=== PATIENT | male | born 1965 | race Caucasian/White ===

== ENCOUNTER 2018-08-12 08:04 | Day surgery (SDC) | payer OTHER ==
[~2018-08-12] VITALS: Ht 180.3 cm; Wt 102.1 kg
[~2018-08-12 08:04] MED LIST: ASPI81CH33 PO; D 101000 PO; FISH1000 PO; GALZ25CA PO; GINK1CAP PO; LEVO50TA5 PO; NO ITAB PO; NS 1,000 ML IV ONE; ROSU40TA3 PO; TUMERIC
[2018-08-12] MEDS ORDERED: LIDOCAINE 2% INJ 100 MG/5 ML SDV (FOR ANES.) As Ordered ONE (09:47)
[2018-08-12] MEDS ORDERED: PROPOFOL 200 MG/20 ML VIAL As Ordered ONE ×2 (09:47→09:53)
--- NOTE | 2018-08-12 09:59 | ROOR ---
Patient Name: Lloyd Pena Procedure Date: 08/12/2018 9:37 AM Date of : 1965 Age: 53 Room: [facility] Gender: Male Note Status: Finalized Procedure: Total Colonoscopy to Cecum Indications: Colon cancer screening in patient at increased risk: Colorectal cancer in father Providers: Gerry Mcdowell MD Referring MD: Simba Damon Md Requesting Provider: Medicines: Monitored Anesthesia Care Complications: No immediate complications. Procedure: Pre-Anesthesia Assessment: - The heart rate, respiratory rate, oxygen saturations, blood pressure, adequacy of pulmonary ventilation, and response to care were monitored throughout the procedure. The Colonoscope was introduced through the anus and advanced to the cecum, identified by appendiceal orifice and ileocecal valve. The colonoscopy was performed without difficulty. The patient tolerated the procedure well. The quality of the bowel preparation was excellent. Findings: The perianal and digital rectal examinations were normal. Non-bleeding internal hemorrhoids were found during retroflexion. The hemorrhoids were small and Grade I (internal hemorrhoids that do not prolapse). No other significant abnormalities were identified in a careful examination of the remainder of the colon. The exam was otherwise without abnormality on direct and retroflexion views. Impression: - Non-bleeding internal hemorrhoids. - The examination was otherwise normal on direct and retroflexion views. - No specimens collected. - The exam was otherwise normal to the cecum. Recommendation: - Patient has a contact number available for emergencies. The signs and symptoms of potential delayed complications were discussed with the patient. Return to normal activities tomorrow. Written discharge instructions were provided to the patient. - High fiber diet. - Discharge patient to home. - Continue present medications. - Repeat colonoscopy in 5 years for screening purposes. - Return to referring physician. - The findings and recommendations were discussed with the patient's family. Gerry Mcdowell MD Gerry Mcdowell MD 08/12/2018 9:59:20 AM Electronically signed by Gerry Mcdowell MD Number of Addenda: 0 Note Initiated On: 08/12/2018 9:37 AM Estimated Blood Loss: Estimated blood loss: none.
[2018-08-12 10:20] VITALS: BP 136/90
== END 2018-08-12 10:24 | disposition home or self-care (01) ==
LOC: M OPP 08:04
PROVIDERS: ATTEND Internal Medicine Gastroenterology
DX: K64.8 Other hemorrhoids (principal); Z12.11 Encounter for screening for malignant neoplasm of colon; Z80.0 Family history of malignant neoplasm of digestive organs

== ENCOUNTER → 2019-03-02 | Outpatient (CLI) | payer OTHER ==
[~2019-03-02] MED LIST changes: -NS 1,000 ML IV ONE; -ROSU40TA3 PO; +ROSU40TA4 PO
--- NOTE | 2019-03-04 07:45 | SLEEPCENT ---
DATE OF STUDY: 03/02/2019 ORDERED BY: Diamond Hoffman Nocturnal polysomnography was performed for evaluation of sleep physiology in this patient with history of excessive somnolence, snoring and nonrestorative sleep. 7 hours and 54 minutes of data were reviewed. There were 304 minutes of sleep identified. Sleep latency was prolonged at 92 minutes. REM latency was prolonged at 112 minute. Sleep architecture showed fragmentation and periods of wake. There were 2 REM cycles. Overall sleep efficiency was 65%. The patient's electrocardiogram showed a sinus rhythm with an average heart rate of 58 beats per minute. PVCs were appreciated. Electroencephalogram showed normal waveforms for awake and sleep stages. There were 279 respiratory events identified of 10 seconds in duration or greater for an apnea-hypopnea index of 55.1. The events were primarily obstructive, not exclusive to sleep stage nor body posture. Arousals from respiratory events occurred 14.2 times per hour and oxygen desaturations were seen in the 80s with minimal activity in the limb leads. Snoring was noted over the course of the study. IMPRESSION: Obstructive sleep apnea syndrome (G47.33). Apnea-hypopnea index 55.1. RECOMMENDATION: The patient should be encouraged to return to the sleep disorder center at his earliest convenience. In the interim, alcohol and sedative avoidance should be practiced and caution exercised during the operation of motor vehicles.
== END ==
LOC: M SLEEP 19:54
PROVIDERS: ATTEND Nurse Practitioner Adult Health
DX: G47.33 Obstructive sleep apnea (adult) (pediatric) (principal)

== ENCOUNTER → 2019-03-28 | Outpatient (CLI) | payer OTHER ==
--- NOTE | 2019-03-30 08:05 | SLEEPCENT ---
DATE OF PROCEDURE: 03/28/2019 ORDERED BY: Diamond Hoffman NP Nocturnal polysomnography was performed for the titration of pressure therapy in this patient with obstructive sleep apnea syndrome. Apnea-hypopnea index of 55.1. For testing a Katy Boucher nasal pillows device of medium-large size was used with a chin strap; 5 cm of water pressure were applied to the circuit and the lights were extinguished. 6 hours and 47 minutes of data were reviewed. There were 301 minutes of sleep identified. Sleep latency was prolonged at 34 minutes. Rapid eye movement (REM) latency was prolonged at 118 minutes. Sleep architecture did improve though some fragmentation persisted. Overall sleep efficiency was 75%. The patient's electrocardiogram showed a sinus rhythm with an average heart rate of 58 beats per minute. Electroencephalogram (EEG) showed reasonably normal waveforms for awake and sleep and some artifactual change. Respiratory events were best palliated with CPAP at a pressure of +8. Some limb activity was noted despite the use of pressure therapy. Limb movement arousal index was 9.4. IMPRESSION: Obstructive sleep apnea syndrome (G47.33). RECOMMENDATIONS: Nightly use of pressure therapy 8 cm of water.
== END ==
LOC: M SLEEP 20:00
PROVIDERS: ATTEND Nurse Practitioner Adult Health
DX: G47.33 Obstructive sleep apnea (adult) (pediatric) (principal)

== ENCOUNTER 2023-03-30 11:17 | Emergency (ER) | payer OTHER ==
[~2023-03-30] VITALS: Ht 182.9 cm; Wt 104.5 kg
[2023-03-30] MEDS ORDERED: METH4PACK PO (11:45)
[2023-03-30] MEDS ORDERED: GABAPENTIN 300 MG CAP PO ONE (12:45)
[2023-03-30] MEDS ORDERED: diazePAM 5MG TABLET PO ONE (12:45)
[2023-03-30] MEDS ORDERED: KETOROLAC 30 MG/ML 1ML VIAL IM ONE (13:05)
[2023-03-30] MEDS ORDERED: ONDANSETRON 4MG 2ML VIAL IV ONE (15:55)
[2023-03-30] MEDS ORDERED: MORPHINE 4 MG/ML 1ML VIAL IV ONE ×2 (15:55→22:15)
[2023-03-30] MEDS ORDERED: methocarbamoL 500 MG TAB PO ONE (18:25)
[2023-03-30 19:21] LABS: RSV AMPLIFICATION NEGATIVE (NEGATIVE)
[2023-03-31] MEDS ORDERED: MORPHINE 4 MG/ML 1ML VIAL IV ONE ×2 (03:30→06:50)
[2023-03-31 06:41] VITALS: BP 120/63; TEMP 97
[2023-03-31 07:00] VITALS: O2SAT 99
== END 2023-03-31 07:09 | disposition short-term general hospital (02) ==
LOC: M ED 11:17 → EDBD 11:17 → M ED 03-31 07:09
DX: M48.061 Spinal stenosis, lumbar region without neurogenic claudication (principal); M51.27 Other intervertebral disc displacement, lumbosacral region; M51.36 Other intervertebral disc degeneration, lumbar region; M25.78 Osteophyte, vertebrae; Z79.82 Long term (current) use of aspirin; Z79.899 Other long term (current) drug therapy
CPT/HCPCS: 72148; 87631; 96372; 96374; 96375; 96376; 99284; J1885; J2405

== ENCOUNTER → 2024-07-29 | Outpatient (CLI) | payer OTHER ==
[~2024-07-29] MED LIST changes: -GALZ25CA PO; +METH4PACK PO; -ROSU40TA4 PO; +ROSU40TA81 PO; +ZINC25CA2 PO
== END ==
LOC: M PLARAD 10:50
PROVIDERS: ATTEND Internal Medicine
DX: M51.16 Intervertebral disc disorders with radiculopathy, lumbar region (principal); M48.061 Spinal stenosis, lumbar region without neurogenic claudication; M51.17 Intervertebral disc disorders with radiculopathy, lumbosacral region

== ENCOUNTER 2024-10-29 09:45 | Emergency (ER) | payer OTHER ==
[~2024-10-29] VITALS: Ht 182.9 cm; Wt 104.0 kg
[2024-10-29] MEDS ORDERED: CLOP75TA2 PO (10:02)
[2024-10-29] MEDS ORDERED: CYCL-707 PO (10:02)
[2024-10-29] MEDS ORDERED: CELE0.09 PO (10:02)
[2024-10-29] MEDS ORDERED: EZET10TA21 PO (10:02)
[2024-10-29] MEDS: HYDROMORPHONE HCL 0.5 MG/0.5 ML SYRINGE IM ONE (12:21)
[2024-10-29 12:28] VITALS: TEMP 98.4
[2024-10-29 15:01] VITALS: BP 136/88; O2SAT 94
== END 2024-10-29 15:02 | disposition home or self-care (01) ==
LOC: M ED 09:45
DX: M54.41 Lumbago with sciatica, right side (principal); M51.27 Other intervertebral disc displacement, lumbosacral region; Z86.79 Personal history of other diseases of the circulatory system; Z79.82 Long term (current) use of aspirin; Z79.899 Other long term (current) drug therapy
CPT/HCPCS: 96372; 99283; J1171

== ENCOUNTER → 2024-11-03 | Outpatient (CLI) | payer OTHER ==
[~2024-11-03] MED LIST changes: +CELE0.09 PO; +CLOP75TA2 PO; +CYCL-707 PO; +EZET10TA21 PO; +OXYC1CAP2 PO
== END ==
LOC: M RAD 12:11
PROVIDERS: ATTEND Physician Assistant
DX: Z01.818 Encounter for other preprocedural examination (principal)

== ENCOUNTER → 2024-11-09 | Outpatient (REF) | payer OTHER ==
[2024-11-09 18:44] LABS: INR 0.88
== END ==
LOC: M LAB REF 17:25
PROVIDERS: ATTEND Internal Medicine
DX: Z01.818 Encounter for other preprocedural examination (principal)

== ENCOUNTER → 2024-11-15 | Outpatient (CLI) | payer OTHER ==
[~2024-11-15] MED LIST changes: +ACET32TAB PO; +CYCL5TAB4 PO; +KETO-204 PO
== END ==
LOC: M RAD 12:30
PROVIDERS: ATTEND Neurological Surgery
DX: M54.16 Radiculopathy, lumbar region (principal)

== ENCOUNTER 2024-11-23 07:24 | Observation (INO) | payer OTHER ==
[~2024-11-23] VITALS: Ht 182.9 cm; Wt 105.8 kg
[2024-11-23] VITALS (8 sets, daily range): BP systolic 101–137; BP diastolic 57–77; TEMP 97.1–97.8; O2SAT 93–98
[~2024-11-23 07:24] MED LIST changes: -ACET32TAB PO; -CYCL5TAB4 PO; -EZET10TA21 PO; +EZET10TA57 PO; -KETO-204 PO
[2024-11-23] MEDS ORDERED: SUGAMMADEX SODIUM 500 MG/5 ML VIAL As Ordered ONE (07:36)
[2024-11-23] MEDS ORDERED: KETOROLAC 30 MG/ML 1 ML VIAL As Ordered ONE (07:36)
[2024-11-23] MEDS ORDERED: ROCURONIUM BROMIDE 50MG/5ML VIAL As Ordered ONE (07:36)
[2024-11-23] MEDS ORDERED: MIDAZOLAM INJ 2 MG/2 ML VIAL As Ordered ONE (07:36)
[2024-11-23] MEDS ORDERED: ONDANSETRON 4MG 2ML VIAL As Ordered ONE (07:36)
[2024-11-23] MEDS ORDERED: LIDOCAINE 2% 100 MG/5 ML SDV (FOR ANES.) As Ordered ONE (07:36)
[2024-11-23] MEDS ORDERED: KETAMINE HCL 200 MG/20 ML VIAL As Ordered ONE (07:36)
[2024-11-23] MEDS ORDERED: dexAMETHasone 4 MG/ML 1 ML VIAL As Ordered ONE (07:36)
[2024-11-23] MEDS ORDERED: ACETAMINOPHEN 1000MG/100ML IV BAG As Ordered ONE (07:37)
[2024-11-23] MEDS ORDERED: LR 1,000 ML IV SCH (08:30)
[2024-11-23] MEDS: VANCOMYCIN 1000MG/20ML VIAL As Ordered ONE (08:50)
[2024-11-23] MEDS: ceFAZolin SOD 2 GM IV ONCE IV ONE (09:25)
[2024-11-23] MEDS ORDERED: PHENYLephrine 500MCG 5ML (100MCG/ML) SYRINGE As Ordered ONE (09:33)
[2024-11-23] MEDS: methylPREDNISolone SUSP 40 MG/ML 1 ML VIAL As Ordered ONE (12:55)
[2024-11-23] MEDS ORDERED: HYDROmorphone HCL 2 MG/ML 1 ML VIAL As Ordered ONE (13:10)
[2024-11-23] MEDS ORDERED: ONDANSETRON 4MG 2ML VIAL IV PRN ×2 (13:30→13:45)
[2024-11-23] MEDS ORDERED: HYDROMORPHONE HCL 0.5 MG/0.5 ML SYRINGE IV PRN (13:35)
[2024-11-23] MEDS ORDERED: CYCLOBENZAPRINE 5 MG TABLET PO PRN (13:45)
[2024-11-23] MEDS: NS (Normal Saline) 0.9% 1,000 ML IV ONE (14:39)
[2024-11-23] MEDS: ceFAZolin SODIUM 2 GM in DEXTROSE 5% (D5W) ADV/MINI-BAG 50 ML IV SCH (18:14)
[2024-11-23] MEDS: ACETAMINOPHEN 325 MG TAB PO SCH (18:15)
[2024-11-23] MEDS: SENNA 8.6 MG TAB PO SCH (20:07)
[2024-11-23] MEDS: DOCUSATE SODIUM 100 MG CAPSULE PO SCH (20:07)
[2024-11-24 03:04] VITALS: BP 115/65; TEMP 98.1; O2SAT 95
[2024-11-24] MEDS: LEVOTHYROXINE 50 MCG TABLET (0.05 MG) PO SCH (05:24)
[2024-11-24 06:46] VITALS: BP 114/65; TEMP 97.6; O2SAT 97
[2024-11-24 07:58] LABS: BASO # 0.0 10^3/uL (0.0-0.2); BASO % 0.2 % (0.0-1.0); EOS # 0.0 10^3/uL (0.0-0.5); EOS % 0.1 % (0.0-3.0); LYMPH # 1.1 10^3/uL (1.5-5.0); LYMPH % 8.8 % (24.0-44.0); MONO # 0.9 10^3/uL (0.0-0.8); MONO % 7.3 % (2.0-8.0); NEUTROPHILS # 10.3 10^3/uL (1.5-8.5); NEUTROPHILS % 83.1 % (36.0-66.0); PLATELET COUNT, AUTOMATED 258 10^3/uL (150-450)
[2024-11-24 08:25] LABS: CALCIUM LEVEL 9.1 MG/DL (8.3-10.6); CARBON DIOXIDE LEVEL 24.0 MMOL/L (20-31); CHLORIDE LEVEL 107.0 MMOL/L (98-107); CREATININE FOR GFR 1.01 MG/DL (0.70-1.30); GLOMERULAR FILTRATION RATE 84.6 (>49); POTASSIUM SERUM 4.5 MMOL/L (3.5-5.1); SODIUM LEVEL 144.0 MMOL/L (136-145)
[2024-11-24] MEDS: EZETIMIBE 10 MG TABLET PO SCH (08:33)
[2024-11-24] MEDS: ROSUVASTATIN 10 MG TAB PO SCH (08:33)
[2024-11-24] MEDS ORDERED: KETO-204 PO (09:34)
[2024-11-24] MEDS ORDERED: ACET32TAB PO (09:34)
[2024-11-24] MEDS ORDERED: CYCL5TAB4 PO (09:34)
[2024-11-24 09:49] VITALS: BP 133/78; TEMP 98.2; O2SAT 95
[2024-11-24] MEDS ORDERED: HEPARIN SOD 5000 UNITS/ML 1 ML VIAL/SYRINGE SQ SCH (21:00)
== END 2024-11-24 11:00 | disposition home or self-care (01) ==
LOC: M SDC 07:24 → M RR INP 07:25 → M PCU 14:29
PROVIDERS: ADMIT Family Medicine; ATTEND Family Medicine
DX: M51.26 Other intervertebral disc displacement, lumbar region (principal); I25.10 Atherosclerotic heart disease of native coronary artery without angina pectoris; E78.5 Hyperlipidemia, unspecified; E03.9 Hypothyroidism, unspecified; G47.33 Obstructive sleep apnea (adult) (pediatric); Z79.02 Long term (current) use of antithrombotics/antiplatelets; Z79.82 Long term (current) use of aspirin; Z79.899 Other long term (current) drug therapy; Z98.61 Coronary angioplasty status
CPT/HCPCS: 36415; 63047; 76000; 80048; 85025; 86850; 86900; 86901; 88304; 96365; 96366; 97161; J0131; J0665; J0666; J0690; J1010; J1100; J1171; J1885; J2250; J2405; J3010